=== PATIENT | female | born 1955 | race Caucasian/White ===

== ENCOUNTER 2022-12-31 09:52 | Outpatient (CLI) | payer MEDICARE ==
[~2022-12-31 09:52] MED LIST: Iopamidol-370 76% 500 ML MDV (1 ML CHARGE) ONE
== END 2022-12-31 09:53 | disposition home or self-care (01) ==
LOC: BICCT 09:52
PROVIDERS: ATTEND Nurse Practitioner Family
DX: I77.810 Thoracic aortic ectasia (principal)
CPT/HCPCS: 71275; 82565; Q9967

== ENCOUNTER 2023-01-27 10:38 | Outpatient (CLI) | payer MEDICARE | END 2023-01-27 10:39 | disposition home or self-care (01) | LOC: BICCT 10:38 | PROVIDERS: ATTEND Nurse Practitioner Family | DX: R47.81 Slurred speech (principal); G93.9 Disorder of brain, unspecified | CPT/HCPCS: 70450 ==